=== PATIENT | female | born 1940 | race Caucasian/White ===

== ENCOUNTER 2021-01-15 21:17 | Inpatient (IN) | payer MEDICARE, BC, OTHER ==
[~2021-01-15] VITALS: Ht 157.5 cm; Wt 63.0 kg
--- NOTE | 2021-01-15 21:19 | NUR ---
PT BBRA FOR CHEST PAIN. GIVEN ASA 324. NITRO X2 SKIP LOADER. PT IS UNABLE TO RESPOND BACK TO QUESTIONS BUT IS ALERT WHEN SPOKEN TO.
--- NOTE | 2021-01-15 21:23 | NUR ---
BLOOD WORK TAKEN AND SENT TO LAB.
--- NOTE | 2021-01-15 21:30 | NUR ---
TECH AT BEDSIDE TAKING EKG.
--- NOTE | 2021-01-15 21:45 | NUR ---
COVID SWAB DONE AND SENT TO LAB.
[2021-01-15 21:51] LABS: WHITE BLOOD COUNT (AUTO) 7.1 K/uL (4.3-11.0)
[2021-01-15 21:59] LABS: CALCIUM, SERUM 8.9 mg/dL (8.5-10.1); CARBON DIOXIDE 28 mmol/L (21-32); CHLORIDE 98 mmol/L (98-107); CREATININE 0.4 mg/dL (0.6-1.3); GLUCOSE 132 mg/dL (74-106); POTASSIUM 4.4 mmol/L (3.5-5.1); SODIUM SERUM 132 mmol/L (136-145); UREA NITROGEN, BLOOD 18 mg/dL (7-18)
[2021-01-15 22:03] LABS: BASOPHILS # (AUTO) 0.1 K/uL (0.0-0.2); EOSINOPHILS % (AUTO) 5.6 % (0.0-6.0); HEMATOCRIT 44 % (33-45); HEMOGLOBIN 14.6 g/dL (11.5-14.8); LYMPHOCYTES # (AUTO) 2.2 K/uL (0.8-4.8); LYMPHOCYTES % (AUTO) 31.6 % (20.0-44.0); MEAN CORPUSCULAR HGB CONC 34 g/dl (31.0-36.0); MEAN CORPUSCULAR VOLUME 86 fL (82-100); MONOCYTES # (AUTO) 0.8 K/uL (0.1-1.30); MONOCYTES % (AUTO) 10.8 % (2.0-12.0); NEUTROPHILS # (AUTO) 3.6 K/uL (1.8-8.9); PLATELET COUNT (AUTO) 186 K/uL (150-450); RED BLOOD CELL COUNT(AUTO) 5.07 MIL/uL (4.0-5.2)
--- NOTE | 2021-01-15 22:21 | NUR ---
MARIBELL ANGLIN (DAUGHTER) [phone]
--- NOTE | 2021-01-16 01:53 | NUR ---
PT ALERT AND TALKING NOW, PT STATES, "I CAN SPEAK NOW, I FELT PARALYZED WHEN I CAME IN". DENIES ANY SOB WILL CONTINUE TO MONITOR.
[2021-01-16] MEDS ORDERED: Z GUARD REMEDY 2 OZ OINT TP PRN (05:30)
[2021-01-16] MEDS ORDERED: ONDANSETRON HCL/PF 4 MG/2 ML VIAL IVP PRN (05:30)
[2021-01-16] MEDS ORDERED: ACETAMINOPHEN 325 MG TABLET PO PRN (05:30)
[2021-01-16] MEDS ORDERED: ENOXAPARIN SODIUM 40 MG/0.4 ML DISP.SYRIN SQ ONE (06:08)
[2021-01-16] MEDS: ENOXAPARIN SODIUM 40 MG/0.4 ML DISP.SYRIN SQ SCH (06:12)
[2021-01-16] MEDS ORDERED: AMYL1CAP54 PO (07:39)
[2021-01-16] MEDS ORDERED: LISI20TA30 PO (07:39)
[2021-01-16] MEDS ORDERED: MELA5TAB PO (07:39)
[2021-01-16] MEDS ORDERED: BUPR-53 PO (07:39)
[2021-01-16] MEDS ORDERED: BISA10SU11 RC (07:39)
[2021-01-16] MEDS ORDERED: SIME80TA15 PO (07:39)
[2021-01-16] MEDS ORDERED: ESCI10TA PO (07:39)
[2021-01-16] MEDS ORDERED: CALC355O18 PO (07:39)
[2021-01-16] MEDS ORDERED: MAGN400O6 PO (07:39)
[2021-01-16] MEDS ORDERED: OMEP20TA5 PO (07:39)
[2021-01-16] MEDS ORDERED: CARV6.25 PO (07:39)
[2021-01-16] MEDS ORDERED: ZOLP5TAB2 PO (07:39)
[2021-01-16] MEDS ORDERED: CHOL500062 PO (07:39)
[2021-01-16] MEDS ORDERED: ASPI-1169 PO (07:39)
[2021-01-16] MEDS ORDERED: AMLO2.5T2 PO (07:39)
[2021-01-16] MEDS ORDERED: POLY17PO4 PO (07:39)
[2021-01-16] MEDS ORDERED: MECL-182 PO (07:39)
[2021-01-16] MEDS ORDERED: TRAM50TA2 PO (07:39)
[2021-01-16] MEDS ORDERED: CYCL30DR OP (07:39)
--- NOTE | 2021-01-16 08:00 | NUR ---
THE PATIENT IS ALERT AND ORIENTED X3. IN ROOM AIR AND DENIES SOB. RESPIRATION REGULAR AND UNLABORED. DENIES PAIN. VSS.
[2021-01-16] MEDS ORDERED: PANTOPRAZOLE 40 MG TABLET.DR PO ONE (09:03)
[2021-01-16] MEDS ORDERED: ASPIRIN EC 81 MG TABLET.DR PO ONE (09:03)
[2021-01-16] MEDS: ASPIRIN EC 81 MG TABLET.DR PO SCH (09:09)
[2021-01-16] MEDS: PANTOPRAZOLE 40 MG TABLET.DR PO SCH (09:09)
[2021-01-16] MEDS ORDERED: HOME MED MISCELLANEOUS XX SCH ×2 (12:30)
[2021-01-16] MEDS ORDERED: TRAMADOL HCL 50 MG TABLET PO PRN (12:30)
[2021-01-16] MEDS ORDERED: MAGNESIUM HYDROXIDE 30 ML UDC PO PRN (12:30)
[2021-01-16] MEDS ORDERED: BISACODYL SUPP (10 MG) 10 MG/SUPP.RECT SUPP.RECT RC PRN (12:30)
[2021-01-16] MEDS ORDERED: MECLIZINE HCL 12.5 MG TABLET PO PRN (12:30)
[2021-01-16] MEDS ORDERED: AMYLASE/LIPASE/PROTEASE 1 CAP CAPSULE.DR PO SCH (13:00)
--- NOTE | 2021-01-16 13:42 | NUR ---
urine collected and sent to the lab
[2021-01-16 13:48] LABS: BILIRUBIN,URINE Negative (NEGATIVE); COLOR,URINE YELLOW (YELLOW); LEUKOCYTE ESTERASE ,URINE Negative (NEGATIVE); NITRITE, URINE Positive (NEGATIVE); PH,URINE 6.5 (5.0-8.0); PROTEIN,URINE Negative (NEGATIVE); UGLUCOSE 100 MG/DL mg/dL (NEGATIVE); UROBILINOGEN,URINE 0.2 EU/dL (0.2)
[2021-01-16] MEDS: LIPASE/PROTEASE/AMYLASE 1 EACH CAPSULE.DR PO SCH ×2 (13:49→17:24)
[2021-01-16] MEDS: SIMETHICONE 80 MG TAB.CHEW PO SCH ×2 (13:49→17:24)
[2021-01-16] MEDS ORDERED: SIMETHICONE 80 MG TAB.CHEW ONE (13:51)
[2021-01-16 14:00] LABS: RBC,URINE NONE SEEN /HPF (0-2)
[2021-01-16 14:01] LABS: BACTERIA,URINE 4+ /HPF (None Seen); WBC,URINE 0-2 /HPF (0-3)
[2021-01-16 14:03] LABS: URINE AMORPHOUS URATE Few /HPF (None Seen)
--- NOTE | 2021-01-16 14:04 | NUR ---
GOT BED 304-2
--- NOTE | 2021-01-16 15:14 | NUR ---
Carol Ann palmer in [facility] - 01/16/21 at 1514 by KAELYN REPORT GIVEN TO NURSE CARDONA
--- NOTE | 2021-01-16 15:14 | NUR ---
REPORT GIVEN TO NURSE CARDONA
--- NOTE | 2021-01-16 15:14 | NUR ---
REPORT GIVEN TO NURSE CARDONA
--- NOTE | 2021-01-16 16:14 | NUR ---
THE PATIENT IS TAKEN TO ROOM 304-1 IN STABLE CONDITION AND PER ACLS POLICY.
--- NOTE | 2021-01-16 16:15 | NUR ---
RN NOTES RECEIVED PATIENT FROM ER VIA RICARDO AT ROOM 304-1. PATIENT IS AWAKE AND A/O X4. TRANSFERRED AND MADE COMFTABLE ON BED. ABLE TO MAKE NEEDS KNOWN, WITHOUT COMPLAINTS OF PAIN. NO SOB NOTED, NOT IN DISTRESS. WITH IV ACCESS AT LEFT ARM, PATENT AND SALINE LOCKED. SAFETY MEASURES IN PLACED. BED ON LOWEST , LOCKED POSITION. CALL LIGHTS WITHIN REACH.
[2021-01-16 17:00] VITALS: BP 189/91
[2021-01-16] MEDS ORDERED: CARVEDILOL 6.25 MG TABLET PO SCH (17:00)
[2021-01-16] MEDS ORDERED: hydrALAZINE HCL IV 20 MG VIAL IV PRN (17:30)
--- NOTE | 2021-01-16 18:58 | NUR ---
WATER TAXI FERRY OPERATOR CLOSING NOTES PATIENT IS AWAKE AND A/O X4. ABLE TO MAKE NEEDS KNOWN, WITHOUT COMPLAINTS OF PAIN. NO SOB NOTED, NOT IN DISTRESS. WITH IV ACCESS AT LEFT ARM G20, PATENT AND SALINE LOCKED. SAFETY MEASURES IN PLACED. BED ON LOWEST , LOCKED POSITION. CALL LIGHTS WITHIN REACH. WILL ENDORSE FOR BRITT TO DYED RAW STOCK BLOWER FEEDER.
--- NOTE | 2021-01-16 19:50 | NUR ---
CARETAKER GROUNDS OPENING NOTES Patient is awake, A&Ox4. In bed with no signs of distress. Denies chest pain or any kind of discomfort at this time. L hand IV patent and flushed. Tele leads applied correctly. Continue to monitor closely.
[2021-01-16 20:00] VITALS: BP 161/91
[2021-01-16] MEDS: ZOLPIDEM TARTRATE 5 MG TABLET PO PRN (21:12)
[2021-01-16] MEDS: AMLODIPINE BESYLATE 2.5 MG TABLET PO SCH (21:12)
[2021-01-17] VITALS: BP 136/81
[2021-01-17 04:00] VITALS: BP 155/68
[2021-01-17] MEDS: ENOXAPARIN SODIUM 40 MG/0.4 ML DISP.SYRIN SQ SCH (05:45)
--- NOTE | 2021-01-17 06:18 | NUR ---
BAND SINGER CLOSING NOTES Patient has been A&Ox4. Denies any chest pain overnight. Slept well throughout night though easy to wake. On tele monitor patient has been SR 1st degree AV block borderline. Incontinent- kept clean and dry yellow urine no foul smell. Z guard used to periarea. L hand #20G intact and patent. No overnight episodes.
[2021-01-17 06:55] LABS: BASOPHILS # (AUTO) 0.1 K/uL (0.0-0.2); BASOPHILS % (AUTO) 1.3 % (0.0-2.0); HEMATOCRIT 45 % (33-45); HEMOGLOBIN 15.1 g/dL (11.5-14.8); LYMPHOCYTES # (AUTO) 1.7 K/uL (0.8-4.8); LYMPHOCYTES % (AUTO) 26.1 % (20.0-44.0); MEAN CORPUSCULAR HGB CONC 34 g/dl (31.0-36.0); MEAN CORPUSCULAR VOLUME 86 fL (82-100); MONOCYTES # (AUTO) 0.7 K/uL (0.1-1.30); MONOCYTES % (AUTO) 10.9 % (2.0-12.0); NEUTROPHILS # (AUTO) 3.6 K/uL (1.8-8.9); NEUTROPHILS % (AUTO) 55.7 % (43.0-81.0); PLATELET COUNT (AUTO) 173 K/uL (150-450); RED BLOOD CELL COUNT(AUTO) 5.24 MIL/uL (4.0-5.2); WHITE BLOOD COUNT (AUTO) 6.4 K/uL (4.3-11.0)
[2021-01-17 07:07] LABS: CHOLESTEROL 275 mg/dL (<200); HDL CHOLESTEROL 104 mg/dL (40-60); LDL 172 mg/dL (0-99); TRIGLYCERIDES 83 mg/dL (30-150)
[2021-01-17 07:12] LABS: ALANINE AMINOTRANSFERASE 26 U/L (12-78); ALBUMIN 3.3 g/dL (3.4-5.0); ALKALINE PHOSPHATASE 85 U/L (46-116); ASPARTATE AMINOTRANSFERASE 23 U/L (15-37); BILIRUBIN,TOTAL 0.8 mg/dL (0.2-1.0); CALCIUM, SERUM 9.1 mg/dL (8.5-10.1); CARBON DIOXIDE 29 mmol/L (21-32); CHLORIDE 99 mmol/L (98-107); CREATININE 0.4 mg/dL (0.6-1.3); GLUCOSE 134 mg/dL (74-106); MAGNESIUM 2.2 mg/dL (1.8-2.4); PHOSPHORUS 3.7 mg/dL (2.5-4.9); POTASSIUM 3.7 mmol/L (3.5-5.1); SODIUM SERUM 134 mmol/L (136-145); TOTAL PROTEIN, SERUM 6.5 g/dL (6.4-8.2); UREA NITROGEN, BLOOD 13 mg/dL (7-18)
[2021-01-17] MEDS: PANTOPRAZOLE 40 MG TABLET.DR PO SCH ×2 (07:30→08:44)
--- NOTE | 2021-01-17 07:42 | NUR ---
CHIN STRAP SEWER OPENING NOTES RECEIVED PATIENT IN BED, ASLEEP. PATIENT ON ROOM AIR; BREATHING EVEN AND UNLABORED, NO SOB PRESENT. TELE MONITOR WITH A CURRENT READING OF SR 76. IV ACCESS ON L HAND G # [address] SL. [address]ETY PRECAUTIONS IN PL[address]; BED IN LOW POSITION AND LOCKED, RAILS UP X2, CALL LIGHT WITHIN REACH. WILL CONTINUE TO MONITOR PATIENT.
[2021-01-17 07:50] VITALS: BP 164/84
[2021-01-17] MEDS: CHOLECALCIFEROL (VITAMIN D 3) 400 UNIT TABLET PO SCH (08:42)
[2021-01-17] MEDS: LIPASE/PROTEASE/AMYLASE 1 EACH CAPSULE.DR PO SCH ×3 (08:43→17:06)
[2021-01-17] MEDS: ASPIRIN 81 MG TAB.CHEW PO SCH (08:44)
[2021-01-17] MEDS: SIMETHICONE 80 MG TAB.CHEW PO SCH ×3 (08:45→17:07)
[2021-01-17] MEDS: POLYETHYLENE GLYCOL 3350 17 GM POWD.PACK PO SCH (08:46)
[2021-01-17] MEDS: ESCITALOPRAM OXALATE (10 MG) 10 MG TABLET PO SCH (08:46)
[2021-01-17] MEDS: BUPROPION XL 150 MG TAB.ER.24 PO SCH (08:46)
[2021-01-17] MEDS: LISINOPRIL (20MG) 20 MG TABLET PO SCH (08:47)
[2021-01-17] MEDS: CARVEDILOL 6.25 MG TABLET PO SCH ×2 (08:48→17:08)
[2021-01-17] MEDS: ASPIRIN EC 81 MG TABLET.DR PO SCH (08:50)
--- NOTE | 2021-01-17 08:51 | NUR ---
RECRUITING ASSISTANT NOTES THERE ARE TWO SIMILAR ORDERS OF PROTONIX AND ASPIRIN 81 MG. ONE OF EACH ADMINISTERED AND WILL NOTIFY PHARMACY ABOUT DUPLICATE ORDER.
[2021-01-17 12:00] VITALS: BP 98/61
[2021-01-17] MEDS ORDERED: METOPROLOL TARTRATE INJ 5 MG/5 ML AMPUL ONE (14:58)
[2021-01-17] MEDS ORDERED: METOPROLOL TARTRATE INJ 5 MG/5 ML AMPUL IVP PRN (15:00)
[2021-01-17] MEDS ORDERED: NITROGLYCERIN 0.4 MG/TAB BOTTLE SL ONE (15:00)
[2021-01-17] MEDS ORDERED: IOHEXOL-350 100 ML VIAL IV ONE (15:02)
[2021-01-17] MEDS ORDERED: IV NS 0.9% 250 ML IV ONE (15:02)
[2021-01-17 16:00] VITALS: BP 116/63
--- NOTE | 2021-01-17 18:45 | NUR ---
BRIDGE GANG WORKER OPENING NOTES PATIENT REMAINS IN BED, AWAKE, A/O X4, FORGETFUL AT TIMES. PATIENT ON ROOM AIR; BREATHING EVEN AND UNLABORED, NO SOB PRESENT. TELE MONITOR WITH A CURRENT READING OF SR 70S. IV ACCESS ON L HAND G # 20 SL. ALL NEEDS ATTENDED DURING THE DAY. SAFETY PRECAUTIONS IN PLACE; BED IN LOW POSITION AND LOCKED, RAILS UP X2, CALL LIGHT WITHIN REACH. WILL ENDORSE TO CREDIT COLLECTIONS REP NURSE.
--- NOTE | 2021-01-17 19:20 | NUR ---
TICKET BROKER OPENING NOTES RECEIVED PT AWAKE IN BED, A/O X4 WITH FORGETFULNESS. ABLE TO VERBALIZE NEEDS. DENIES ANY PAIN OR DISCOMFORT AT THIS TIME. ON ROOM AIR. NO SOB. IV ACCESS ON LH #20 AND L-AC #20 BOTH INTACT, PATENT AND FLUSHES WELL. ON EXTERNAL EMT/PARAMEDIC CURRENTLY READING SR @64BPM. PT IN NO ACUTE DISTRESS. SAFETY MEASURES MAINTAINED, BED IN LOWEST LOCKED POSITION, S/R UP X2, CALL LIGHT WITHIN EASY REACH. WILL CONTINUE TO MONITOR.
[2021-01-17 20:00] VITALS: BP 117/57
[2021-01-17] MEDS: ZOLPIDEM TARTRATE 5 MG TABLET PO PRN (21:26)
[2021-01-17] MEDS: AMLODIPINE BESYLATE 2.5 MG TABLET PO SCH (21:27)
--- NOTE | 2021-01-17 21:34 | NUR ---
RN NOTE PT C/O UNABLE TO SLEEP AND REQUESTS MED AMBIEN. GIVEN PRN AMBIEN ORDERED. MADE COMFORTABLE IN BED, AND LIGHTS OFF PER PT'S REQUEST.
[2021-01-18] VITALS: BP 139/73
[2021-01-18 04:00] VITALS: BP 142/69
[2021-01-18] MEDS: ENOXAPARIN SODIUM 40 MG/0.4 ML DISP.SYRIN SQ SCH (05:18)
--- NOTE | 2021-01-18 06:34 | NUR ---
BOX SEALING MACHINE CATCHER CLOSING NOTES PT RESTING IN BED, EASILY AROUSABLE, A/O X4 WITH FORGETFULNESS. NO C/O PAIN OR DISCOMFORT AT THIS TIME. BREATHING EVEN/UNLABORED, ON ROOM AIR. IV ACCESS ON LH #20 AND L-AC #20 BOTH INTACT, PATENT AND FLUSHES WELL. ON TELE MONITOR READING SR, HR 62. PT IN NO ACUTE DISTRESS. SAFETY MEASURES MAINTAINED, BED IN LOWEST LOCKED POSITION, S/R UP X2, CALL LIGHT WITHIN EASY REACH.
[2021-01-18] MEDS: PANTOPRAZOLE 40 MG TABLET.DR PO SCH ×2 (07:30→08:22)
--- NOTE | 2021-01-18 07:40 | NUR ---
WEATHERIZATION TECHNICIAN OPENING NOTES RECEIVED PATIENT ASLEEP IN BED, EASY TO AROUSE. ALERT AND ORIENTED 4, FORGETFUL. NO SIGNS OR SYMPTOMS OF DISTRESS NOTED. NO SOB. NO COMPLAINTS OF PAIN AT THIS TIME. ABLE TO MAKE NEEDS KNOWN. PATIENT TOLERATING WELL ON ROOM AIR. IV ACCESS L HAND#20 PATENT, INTACT AND FLUSHING WELL. SAFETY MEASURES IN PLACE WITH BED AT LOW POSITION, SIDE RAILS UP X2. CALL LIGHT IS WITHIN REACH. WILL CONTINUE TO MONITOR PATIENT THROUGHOUT SHIFT.
[2021-01-18 08:00] VITALS: BP 154/78
--- NOTE | 2021-01-18 08:29 | NUR ---
SECURITY SYSTEMS ADMINISTRATOR NOTES DUPLICATE ORDER OF PROTONIX. WILL INFORM PHARMACY.
[2021-01-18] MEDS: BUPROPION XL 150 MG TAB.ER.24 PO SCH (08:42)
[2021-01-18] MEDS: CARVEDILOL 6.25 MG TABLET PO SCH (08:42)
[2021-01-18] MEDS: CHOLECALCIFEROL (VITAMIN D 3) 400 UNIT TABLET PO SCH (08:42)
[2021-01-18] MEDS: LIPASE/PROTEASE/AMYLASE 1 EACH CAPSULE.DR PO SCH ×3 (08:42→17:14)
[2021-01-18] MEDS: ASPIRIN 81 MG TAB.CHEW PO SCH (08:42)
[2021-01-18] MEDS: SIMETHICONE 80 MG TAB.CHEW PO SCH ×3 (08:42→17:10)
[2021-01-18] MEDS: ESCITALOPRAM OXALATE (10 MG) 10 MG TABLET PO SCH (08:42)
[2021-01-18] MEDS: LISINOPRIL (20MG) 20 MG TABLET PO SCH (08:43)
[2021-01-18] MEDS: POLYETHYLENE GLYCOL 3350 17 GM POWD.PACK PO SCH (08:43)
[2021-01-18] MEDS: ASPIRIN EC 81 MG TABLET.DR PO SCH (08:52)
[2021-01-18 09:41] LABS: BASOPHILS # (AUTO) 0.1 K/uL (0.0-0.2); BASOPHILS % (AUTO) 1.7 % (0.0-2.0); HEMATOCRIT 43 % (33-45); HEMOGLOBIN 14.5 g/dL (11.5-14.8); LYMPHOCYTES # (AUTO) 1.9 K/uL (0.8-4.8); LYMPHOCYTES % (AUTO) 33.6 % (20.0-44.0); MEAN CORPUSCULAR HGB CONC 34 g/dl (31.0-36.0); MEAN CORPUSCULAR VOLUME 86 fL (82-100); MONOCYTES # (AUTO) 0.6 K/uL (0.1-1.30); NEUTROPHILS # (AUTO) 2.7 K/uL (1.8-8.9); NEUTROPHILS % (AUTO) 47.7 % (43.0-81.0); PLATELET COUNT (AUTO) 162 K/uL (150-450); RED BLOOD CELL COUNT(AUTO) 4.99 MIL/uL (4.0-5.2); WHITE BLOOD COUNT (AUTO) 5.7 K/uL (4.3-11.0)
[2021-01-18 10:12] LABS: CALCIUM, SERUM 9.2 mg/dL (8.5-10.1); CARBON DIOXIDE 26 mmol/L (21-32); CHLORIDE 98 mmol/L (98-107); CREATININE 0.4 mg/dL (0.6-1.3); GLUCOSE 126 mg/dL (74-106); MAGNESIUM 2.4 mg/dL (1.8-2.4); PHOSPHORUS 4.2 mg/dL (2.5-4.9); POTASSIUM 4.2 mmol/L (3.5-5.1); SODIUM SERUM 132 mmol/L (136-145); UREA NITROGEN, BLOOD 14 mg/dL (7-18)
[2021-01-18 16:00] VITALS: BP 137/71
--- NOTE | 2021-01-18 18:59 | NUR ---
HOME HEALTH CARE RESPIRATORY THERAPIST CLOSING NOTES PATIENT IS AWAKE IN BED ON HER CELL PHONE. ALERT AND ORIENTED 4, FORGETFUL. NO SIGNS OR SYMPTOMS OF DISTRESS NOTED. NO SOB. NO COMPLAINTS OF PAIN AT THIS TIME. ABLE TO MAKE NEEDS KNOWN. ALL NEEDS MET THROUGHOUT SHIFT. PATIENT TOLERATING WELL ON ROOM AIR. IV ACCESS L HAND#20 PATENT, INTACT AND FLUSHING WELL. SAFETY MEASURES IN PLACE WITH BED AT LOW POSITION, SIDE RAILS UP X2. CALL LIGHT IS WITHIN REACH. WILL ENDORSE CONTINUITY OF CARE TO ONCOMING SHIFT.
--- NOTE | 2021-01-18 19:15 | NUR ---
ASSOCIATE FINANCIAL PLANNER OPENING NOTES PT AWAKE IN BED, PLAYING ON HER CELLPHONE. A/O X4 WITH FORGETFULNESS. ABLE TO VERBALIZE NEEDS. SHE DENIES ANY PAIN OR DISCOMFORT AT THIS TIME. ON ROOM AIR AND TOLERATING WELL. IV SITE ON LH #20 AND L-AC #20 BOTH INTACT, PATENT AND FLUSHES WELL. PT IN NO ACUTE DISTRESS. SAFETY MEASURES IN PLACE, BED IN LOWEST LOCKED POSITION, S/R UP X2, CALL LIGHT AND TABLE WITHIN EASY REACH. WILL CONTINUE TO MONITOR.
[2021-01-18 20:00] VITALS: BP 149/68
[2021-01-18] MEDS: CARVEDILOL 12.5 MG TABLET PO SCH (21:06)
[2021-01-18] MEDS: AMLODIPINE BESYLATE 5 MG TABLET PO SCH (21:54)
[2021-01-18] MEDS: ZOLPIDEM TARTRATE 5 MG TABLET PO PRN (21:55)
[2021-01-19] VITALS (22 sets, daily range): BP systolic 96–167; BP diastolic 42–88
[2021-01-19] MEDS: ENOXAPARIN SODIUM 40 MG/0.4 ML DISP.SYRIN SQ SCH (05:26)
[2021-01-19 06:07] LABS: BASOPHILS # (AUTO) 0.1 K/uL (0.0-0.2); BASOPHILS % (AUTO) 1.3 % (0.0-2.0); HEMATOCRIT 41 % (33-45); HEMOGLOBIN 13.9 g/dL (11.5-14.8); LYMPHOCYTES # (AUTO) 1.5 K/uL (0.8-4.8); LYMPHOCYTES % (AUTO) 29.3 % (20.0-44.0); MEAN CORPUSCULAR HGB CONC 34 g/dl (31.0-36.0); MEAN CORPUSCULAR VOLUME 86 fL (82-100); MONOCYTES # (AUTO) 0.6 K/uL (0.1-1.30); MONOCYTES % (AUTO) 10.4 % (2.0-12.0); NEUTROPHILS # (AUTO) 2.8 K/uL (1.8-8.9); PLATELET COUNT (AUTO) 147 K/uL (150-450); WHITE BLOOD COUNT (AUTO) 5.3 K/uL (4.3-11.0)
[2021-01-19 06:23] LABS: ALANINE AMINOTRANSFERASE 23 U/L (12-78); ALKALINE PHOSPHATASE 78 U/L (46-116); ASPARTATE AMINOTRANSFERASE 25 U/L (15-37); BILIRUBIN,TOTAL 0.7 mg/dL (0.2-1.0); CALCIUM, SERUM 8.9 mg/dL (8.5-10.1); CARBON DIOXIDE 27 mmol/L (21-32); CHLORIDE 100 mmol/L (98-107); CREATININE 0.5 mg/dL (0.6-1.3); GLUCOSE 141 mg/dL (74-106); MAGNESIUM 2.1 mg/dL (1.8-2.4); PHOSPHORUS 3.6 mg/dL (2.5-4.9); POTASSIUM 4.2 mmol/L (3.5-5.1); SODIUM SERUM 132 mmol/L (136-145); TOTAL PROTEIN, SERUM 5.9 g/dL (6.4-8.2); UREA NITROGEN, BLOOD 14 mg/dL (7-18)
--- NOTE | 2021-01-19 06:37 | NUR ---
AMMONIA REFRIGERATION WORKER CLOSING NOTES PT RESTING IN BED, EASILY AWAKENS TO STIMULI. SHE DENIES ANY PAIN OR DISCOMFORT. NO SOB. SLEPT WELL. IV ACCESS ON LH #20 AND L-AC #20 BOTH INTACT/PATENT, FLUSHES WELL. ON TELE MONITOR SR, HR 60. PT IN NO ACUTE DISTRESS. SAFETY MEASURES MAINTAINED, BED IN LOWEST LOCKED POSITION, S/R UP X2, CALL LIGHT AND TABLE WITHIN EASY REACH.
--- NOTE | 2021-01-19 07:32 | NUR ---
POLICE ACADEMY INSTRUCTOR OPENING NOTES RECEIVED PATIENT ASLEEP IN BED, EASY TO AROUSE. ALERT AND ORIENTED X 3, FORGETFUL. NO SIGNS OR SYMPTOMS OF DISTRESS NOTED. NO SOB. NO COMPLAINTS OF PAIN AT THIS TIME. ABLE TO MAKE NEEDS KNOWN. PATIENT TOLERATING WELL ON ROOM AIR. IV ACCESS L HAND#20 PATENT, INTACT AND FLUSHING WELL. SAFETY MEASURES IN PLACE WITH BED AT LOW POSITION, SIDE RAILS UP X2. CALL LIGHT IS WITHIN REACH. WILL CONTINUE TO MONITOR PATIENT THROUGHOUT SHIFT.
[2021-01-19] MEDS: LIPASE/PROTEASE/AMYLASE 1 EACH CAPSULE.DR PO SCH ×3 (08:10→17:11)
[2021-01-19] MEDS: SIMETHICONE 80 MG TAB.CHEW PO SCH ×3 (08:10→17:11)
[2021-01-19] MEDS: CARVEDILOL 12.5 MG TABLET PO SCH ×2 (08:11→21:16)
[2021-01-19] MEDS: ESCITALOPRAM OXALATE (10 MG) 10 MG TABLET PO SCH (08:11)
[2021-01-19] MEDS: BUPROPION XL 150 MG TAB.ER.24 PO SCH (08:11)
[2021-01-19] MEDS: LISINOPRIL (20MG) 20 MG TABLET PO SCH (08:11)
[2021-01-19] MEDS: POLYETHYLENE GLYCOL 3350 17 GM POWD.PACK PO SCH (08:12)
[2021-01-19] MEDS: PANTOPRAZOLE 40 MG TABLET.DR PO SCH (08:12)
[2021-01-19] MEDS: ASPIRIN 81 MG TAB.CHEW PO SCH (08:12)
[2021-01-19] MEDS: CHOLECALCIFEROL (VITAMIN D 3) 400 UNIT TABLET PO SCH (08:26)
[2021-01-19] MEDS: ASPIRIN EC 81 MG TABLET.DR PO SCH (09:00)
--- NOTE | 2021-01-19 09:06 | NUR ---
VERIFICATION LEAD NOTES DUPLICATE ASPIRIN 81 MG
[2021-01-19] MEDS ORDERED: IV NS 0.9% 1,000 ML ONE (10:11)
[2021-01-19] MEDS ORDERED: IODIXANOL 150 ML IV ONE (10:12)
[2021-01-19] MEDS ORDERED: LIDOCAINE HCL/MPF 1% 30 ML VIAL IJ ONE (11:13)
--- NOTE | 2021-01-19 11:17 | NUR ---
COMPOSITION TILE LAYER NOTES PATIENT WAS PICKED UP BY YOANNA FROM RADIOLOGY AT THIS TIME. PATIENT LEFT WITH STABLE VITAL SIGNS.
[2021-01-19] MEDS ORDERED: FENTANYL PF 100MCG/2ML AMPUL ONE (12:02)
[2021-01-19] MEDS ORDERED: MIDAZOLAM HCL 2 MG/2ML VIAL ONE (12:03)
[2021-01-19] MEDS ORDERED: NITROGLYCERIN IN 5 % DEXTROSE 250 ML IV ONE (12:03)
[2021-01-19] MEDS ORDERED: HEPARIN SODIUM, PORCINE 1,000 UNIT/ML VIAL ONE (12:36)
[2021-01-19] MEDS ORDERED: IODIXANOL 320MG/ML 0 ML IV ONE (12:39)
--- NOTE | 2021-01-19 13:30 | NUR ---
MOBILE ELECTRONICS INSTALLER RECEIVED PT BY BED FROM TENON MACHINE OPERATOR. REPORT RECEIVED. PT AWAKE AND ALERT, FOLLOWING COMMANDS. RIGHT FEMORAL SHEATH INTACT, SITE CLEAN AND DRY, COVERED BY 2X2 GAUZE AND CLEAR DRESSING. RIGHT DORSALIS PEDIS PULSE PALPABLE. WILL CHECK PTT IN 2 HRS.
--- NOTE | 2021-01-19 13:30 | NUR ---
CHEESEMAKING LABORER NOTES PATIENT WAS TRANSFERRED TO ICU FROM SOAKING PIT OPERATOR, REPORT GIVEN TO BENJIE SNYDER.
--- NOTE | 2021-01-19 15:00 | NUR ---
CUT OFF MAN SANGUINEOUS DRAINAGE NOTED ON INSERTION SITE. NS 1 LITER BAG PLACED OVER SITE. DISTAL PULSE PALPABLE.
--- NOTE | 2021-01-19 17:00 | NUR ---
HEART COORDINATOR SMALL AMT DRAINAGE NOTED ON INSERTION SITE SATURATING 2 X 2 GAUZE. DISTAL PULSES PALPABLE. PTT DRAWN.
--- NOTE | 2021-01-19 19:45 | NUR ---
ICU/TRIAGE RN CLAIMS ACCOUNT MANAGER NURSE SILVANO CAME TO PULL THE SHEATH. APPLIED PRESSURE ON IT. WILL CONTINUE TO MONITOR THIS PT.
--- NOTE | 2021-01-19 20:30 | NUR ---
ICU/SWEAT BAND SEWER AMBIEN GIVEN FOR SLEEP PER PT'S REQUEST. WILL MONITOR THIS PT.
[2021-01-19] MEDS: ZOLPIDEM TARTRATE 5 MG TABLET PO PRN (21:15)
[2021-01-19] MEDS: AMLODIPINE BESYLATE 5 MG TABLET PO SCH (21:15)
--- NOTE | 2021-01-19 21:30 | NUR ---
ICU/CAPTAIN ASSISTANT PT WAS CLEANED AND GIVEN PM CARE. PT HAD A LARGE BM AND URINE. PT WAS TURNED AND REPOSITIONED FOR COMFORT AND CARE,
--- NOTE | 2021-01-19 23:00 | NUR ---
ICU/CONSULTANT THE PLACE WHERE THE SHEATH WAS PULLED LOOKS GOOD WITH NO SWELLING OR REDNESS SEEN ALSO NO BLEEDING SEEN. WILL MONITOR THIS PT.
[2021-01-20] VITALS (13 sets, daily range): BP systolic 91–137; BP diastolic 42–72
[2021-01-20] MEDS: ENOXAPARIN SODIUM 40 MG/0.4 ML DISP.SYRIN SQ SCH (04:19)
[2021-01-20 04:44] LABS: BASOPHILS # (AUTO) 0.1 K/uL (0.0-0.2); BASOPHILS % (AUTO) 1.4 % (0.0-2.0); HEMATOCRIT 41 % (33-45); LYMPHOCYTES # (AUTO) 1.3 K/uL (0.8-4.8); LYMPHOCYTES % (AUTO) 20.9 % (20.0-44.0); MEAN CORPUSCULAR HGB CONC 34 g/dl (31.0-36.0); MEAN CORPUSCULAR VOLUME 86 fL (82-100); MONOCYTES # (AUTO) 0.5 K/uL (0.1-1.30); MONOCYTES % (AUTO) 8.2 % (2.0-12.0); NEUTROPHILS # (AUTO) 4.2 K/uL (1.8-8.9); NEUTROPHILS % (AUTO) 65.5 % (43.0-81.0); PLATELET COUNT (AUTO) 147 K/uL (150-450); RED BLOOD CELL COUNT(AUTO) 4.78 MIL/uL (4.0-5.2); WHITE BLOOD COUNT (AUTO) 6.3 K/uL (4.3-11.0)
[2021-01-20 04:57] LABS: CALCIUM, SERUM 9.4 mg/dL (8.5-10.1); CARBON DIOXIDE 27 mmol/L (21-32); CHLORIDE 100 mmol/L (98-107); CREATININE 0.4 mg/dL (0.6-1.3); GLUCOSE 119 mg/dL (74-106); POTASSIUM 5.3 mmol/L (3.5-5.1); SODIUM SERUM 135 mmol/L (136-145); UREA NITROGEN, BLOOD 14 mg/dL (7-18)
--- NOTE | 2021-01-20 08:00 | NUR ---
SCIENTIFIC PHOTOGRAPHER PT AWAKE AND ALERT. HARD OF HEARING, FOLLOWING COMMANDS, SPEECH CLEAR. RIGHT FEMORAL SITE CLEAN AND DRY. DISTAL PULSE PALPABLE.
[2021-01-20] MEDS: ESCITALOPRAM OXALATE (10 MG) 10 MG TABLET PO SCH (08:17)
[2021-01-20] MEDS: ASPIRIN 81 MG TAB.CHEW PO SCH (08:17)
[2021-01-20] MEDS: LIPASE/PROTEASE/AMYLASE 1 EACH CAPSULE.DR PO SCH ×2 (08:17→14:27)
[2021-01-20] MEDS: CHOLECALCIFEROL (VITAMIN D 3) 400 UNIT TABLET PO SCH (08:17)
[2021-01-20] MEDS: PANTOPRAZOLE 40 MG TABLET.DR PO SCH (08:17)
[2021-01-20] MEDS: POLYETHYLENE GLYCOL 3350 17 GM POWD.PACK PO SCH (08:18)
[2021-01-20] MEDS: CARVEDILOL 12.5 MG TABLET PO SCH (08:18)
[2021-01-20] MEDS: BUPROPION XL 150 MG TAB.ER.24 PO SCH (09:00)
[2021-01-20] MEDS: SIMETHICONE 80 MG TAB.CHEW PO SCH ×2 (09:32→14:27)
[2021-01-20] MEDS ORDERED: ISOSORBIDE DINITRATE (20MG) 20 MG TABLET PO SCH (10:00)
[2021-01-20] MEDS ORDERED: IV NS 0.9% 1,000 ML IV PRN (10:00)
--- NOTE | 2021-01-20 11:27 | NUR ---
MS RN NOTE RECEIVED PATIENT FROM ICU, PATIENT IS STABLE IN NO ACUTE DISTRESS. VITALS SIGNS ARE WITHIN NORMAL LIMITS. PATIENT IS IN BED, WILL NEED PHYSICAL THERAPY EVALUATION. SAFETY PRECAUTIONS ARE ON, BED IS LOCKED IN THE LOWEST POSITION, SIDE RAILS ARE UP CALL LIGHT WITHIN REACH, WILL CONTINUE TO MONITOR.
--- NOTE | 2021-01-20 11:30 | NUR ---
CUSTOMER SUCCESS REPRESENTATIVE TRANSFERRED BY BED TO M/S 311-2. REPORT GIVEN. K LEVEL TO BE CHECKED AT 1500. PT CAN BE DISCHARGED IF K LEVEL WITHIN NORMAL LIMITS.
[2021-01-20 16:40] LABS: CALCIUM, SERUM 8.8 mg/dL (8.5-10.1); CARBON DIOXIDE 26 mmol/L (21-32); CHLORIDE 99 mmol/L (98-107); CREATININE 0.5 mg/dL (0.6-1.3); GLUCOSE 123 mg/dL (74-106); SODIUM SERUM 134 mmol/L (136-145); UREA NITROGEN, BLOOD 16 mg/dL (7-18)
--- NOTE | 2021-01-20 18:15 | NUR ---
MS ENVIRONMENTAL ECONOMIST NOTE PATIENT IS MEDICALLY STABLE TO BE DISCHARGED. PATIENT IS IN NO ACUTE DISTRESS. PATIENT NEEDS ATTENDED DURING THE STAY. DISCHARGE INSTRUCTIONS PROVIDED TO THE [facility]. PATIENTS ID BAND AND IV LINE REMOVED. PATIENT WAS PICKED UP BY QUALITY ASSOCIATE. MD IS AWARE OF DISCHARGE.
== END 2021-01-20 18:14 | DRG 287 ==
LOC: ER 21:33 → TRANSITION 01-16 06:40 → TELE 01-16 14:05 → MED 01-19 08:56 → TELE 01-19 08:58 → ICU 01-19 13:11 → MED 01-20 12:13
PROVIDERS: ADMIT Nurse Practitioner Acute Care; ATTEND Nurse Practitioner Acute Care
PROC: 4A023N7 Measurement of Cardiac Sampling and Pressure, Left Heart, Percutaneous Approach (ICD-10-PCS; principal; 2021-01-19)
PROC: B211YZZ Fluoroscopy of Multiple Coronary Arteries using Other Contrast (ICD-10-PCS; 2021-01-19)
PROC: B215YZZ Fluoroscopy of Left Heart using Other Contrast (ICD-10-PCS; 2021-01-19)
PROC: B41FYZZ Fluoroscopy of Right Lower Extremity Arteries using Other Contrast (ICD-10-PCS; 2021-01-19)
DX: I25.110 Atherosclerotic heart disease of native coronary artery with unstable angina pectoris (principal); K86.1 Other chronic pancreatitis; D68.59 Other primary thrombophilia; I69.351 Hemiplegia and hemiparesis following cerebral infarction affecting right dominant side; I69.354 Hemiplegia and hemiparesis following cerebral infarction affecting left non-dominant side; E78.5 Hyperlipidemia, unspecified; E55.9 Vitamin D deficiency, unspecified; M35.01 Sjogren syndrome with keratoconjunctivitis; K59.09 Other constipation; K21.9 Gastro-esophageal reflux disease without esophagitis; G47.00 Insomnia, unspecified; F32.9 Major depressive disorder, single episode, unspecified; Z74.01 Bed confinement status; I11.0 Hypertensive heart disease with heart failure; I50.9 Heart failure, unspecified; I69.320 Aphasia following cerebral infarction; I25.2 Old myocardial infarction; Z98.61 Coronary angioplasty status; E11.9 Type 2 diabetes mellitus without complications; E87.5 Hyperkalemia; D17.9 Benign lipomatous neoplasm, unspecified
CPT/HCPCS: 36415; 71045-TC; 74018; 75574; 80048-TC; 80053-TC; 80061-TC; 81001; 83735-TC; 84100-TC; 84484-TC; 85025-TC; 85730-TC; 87081-TC; 93307-TC; A6403; C1769; C1887; C1894; C9803; G0378; G0500; J1644; J1650; J2250; J3010; J3490; J7030; J7050; Q9967